=== PATIENT | male | born 1990 | race Caucasian/White ===

== ENCOUNTER 2017-06-24 10:01 | Emergency (ER) | payer MEDICAID ==
[~2017-06-24] VITALS: Ht 191.8 cm; Wt 132.4 kg
[2017-06-24 10:04] VITALS: Ht 191.8 cm; Wt 132.4 kg
[2017-06-24 11:26] VITALS: BP 130/74
== END 2017-06-24 11:26 | disposition home or self-care (01) ==
LOC: ED 10:01
DX: J45.909 Unspecified asthma, uncomplicated (principal); E66.01 Morbid (severe) obesity due to excess calories; I10 Essential (primary) hypertension
CPT/HCPCS: 82962

== ENCOUNTER 2017-07-21 08:10 | Emergency (ER) | payer MEDICAID ==
[~2017-07-21] VITALS: Ht 190.5 cm; Wt 132.0 kg
[2017-07-21 09:12] VITALS: BP 136/81
== END 2017-07-21 09:12 | disposition home or self-care (01) ==
LOC: ED 08:10
DX: R10.9 Unspecified abdominal pain (principal); R19.7 Diarrhea, unspecified; I10 Essential (primary) hypertension; J45.909 Unspecified asthma, uncomplicated

== ENCOUNTER 2017-07-22 17:08 | Emergency (ER) | payer MEDICAID ==
[~2017-07-22] VITALS: Ht 193 cm; Wt 133.8 kg
[2017-07-22 17:11] VITALS: Ht 193 cm; Wt 133.8 kg
[2017-07-22 19:38] LABS: CALCIUM 7.9 mg/dL (8.5-10.1); CHLORIDE SERUM 103 mmol/L (98-107); CREATININE SERUM 0.9 mg/dL (0.7-1.3); GFR1 > 60 mL/min; GLUCOSE SERUM 204 mg/dL (74-106); SODIUM SERUM 138 mmol/L (136-145)
[2017-07-22 19:43] LABS: ALKALINE PHOSPHATASE 130 U/L (46-116); BILIRUBIN TOTAL 0.87 mg/dL (0.20-1.00)
[2017-07-22 20:05] LABS: TOTAL PROTEIN, SERUM 7.5 g/dL (6.4-8.2)
[2017-07-22 20:09] LABS: ALBUMIN 3.3 g/dL (3.4-5.0); ALT/SGPT 140 U/L (16-63); AST/SGOT 65 U/L (15-37)
[2017-07-22 21:59] VITALS: BP 133/81
== END 2017-07-22 21:59 | disposition home or self-care (01) ==
LOC: ED 17:08
PROVIDERS: Emergency Medicine
DX: K52.9 Noninfective gastroenteritis and colitis, unspecified (principal); E83.51 Hypocalcemia; I10 Essential (primary) hypertension; J45.909 Unspecified asthma, uncomplicated
CPT/HCPCS: 82962; J1885; J2405; J7030

== ENCOUNTER 2017-07-29 10:16 | Emergency (ER) | payer MEDICAID ==
[~2017-07-29] VITALS: Ht 193 cm; Wt 130.7 kg
[2017-07-29 10:39] VITALS: Ht 193 cm; Wt 130.7 kg
[2017-07-29 12:07] LABS: BASOPHIL % 1.3 % (0-2); PLATELET COUNT 148 x10^3mcL (130-400); RED CELL DISTRIBUTION WIDTH 13.5 % (11.5-14.5)
[2017-07-29 12:10] LABS: CALCIUM 9.3 mg/dL (8.5-10.1); CARBON DIOXIDE 26.8 mmol/L (21-32); CHLORIDE SERUM 103 mmol/L (98-107); CREATININE SERUM 0.8 mg/dL (0.7-1.3); GFR1 > 60 mL/min; GLUCOSE SERUM 106 mg/dL (74-106); POTASSIUM SERUM 4.2 mmol/L (3.5-5.1); SODIUM SERUM 138 mmol/L (136-145)
[2017-07-29 12:16] LABS: ALBUMIN 3.8 g/dL (3.4-5.0); ALKALINE PHOSPHATASE 115 U/L (46-116); ALT/SGPT 157 U/L (16-63); AST/SGOT 57 U/L (15-37); BILIRUBIN TOTAL 0.6 mg/dL (0.20-1.00)
[2017-07-29 17:14] VITALS: BP 120/71
== END 2017-07-29 14:00 | disposition home or self-care (01) ==
LOC: ED 10:16
PROVIDERS: Emergency Medicine Emergency Medical Services
DX: R94.5 Abnormal results of liver function studies (principal); D58.2 Other hemoglobinopathies; I10 Essential (primary) hypertension; E11.9 Type 2 diabetes mellitus without complications; J45.909 Unspecified asthma, uncomplicated
CPT/HCPCS: 36415; 82962; 86308; Q0092

== ENCOUNTER 2018-07-01 13:32 | Emergency (ER) | payer MEDICAID ==
[~2018-07-01] VITALS: Ht 190.5 cm; Wt 121.6 kg
[2018-07-01 13:42] VITALS: Ht 190.5 cm; Wt 121.6 kg
[2018-07-01 15:06] LABS: BASOPHIL % 0.4 % (0-2); PLATELET COUNT 148 x10^3mcL (130-400); RED CELL DISTRIBUTION WIDTH 13.4 % (11.5-14.5)
[2018-07-01 15:19] LABS: CALCIUM 8.5 mg/dL (8.5-10.1); CARBON DIOXIDE 21.3 mmol/L (21-32); CHLORIDE SERUM 102 mmol/L (98-107); CREATININE SERUM 0.8 mg/dL (0.7-1.3); GFR1 > 60 mL/min; GLUCOSE SERUM 303 mg/dL (74-106); POTASSIUM SERUM 3.7 mmol/L (3.5-5.1); SODIUM SERUM 135 mmol/L (136-145)
[2018-07-01 15:24] LABS: ALBUMIN 3.9 g/dL (3.4-5.0); ALKALINE PHOSPHATASE 145 U/L (46-116); ALT/SGPT 232 U/L (16-63); BILIRUBIN TOTAL 0.4 mg/dL (0.20-1.00); LIPASE 81 IU/L (73-393); TOTAL PROTEIN, SERUM 8.2 g/dL (6.4-8.2)
[2018-07-01 16:50] LABS: AST/SGOT 112 U/L (15-37)
[2018-07-01 17:07] VITALS: BP 130/46
== END 2018-07-01 17:07 | disposition home or self-care (01) ==
LOC: ED 13:32
PROVIDERS: Emergency Medicine
DX: E11.65 Type 2 diabetes mellitus with hyperglycemia (principal); J45.909 Unspecified asthma, uncomplicated; I10 Essential (primary) hypertension; E78.00 Pure hypercholesterolemia, unspecified; Z90.89 Acquired absence of other organs
CPT/HCPCS: 82962; J1815; J1885; J7030; Q0092

== ENCOUNTER 2018-10-27 07:05 | Emergency (ER) | payer MEDICAID ==
[~2018-10-27] VITALS: Ht 190.5 cm; Wt 119.7 kg
[2018-10-27 07:07] VITALS: Ht 190.5 cm; Wt 119.7 kg
[2018-10-27 07:47] LABS: BASOPHIL % 0.4 % (0-2)
[2018-10-27 07:49] LABS: PLATELET COUNT 112 x10^3mcL (130-400)
[2018-10-27 08:14] LABS: CARBON DIOXIDE 25.1 mmol/L (21-32); CHLORIDE SERUM 99 mmol/L (98-107); CREATININE SERUM 0.9 mg/dL (0.7-1.3); GFR1 > 60 mL/min; GLUCOSE SERUM 376 mg/dL (74-106); POTASSIUM SERUM 4.1 mmol/L (3.5-5.1); SODIUM SERUM 133 mmol/L (136-145); TOTAL PROTEIN, SERUM 7.8 g/dL (6.4-8.2)
[2018-10-27 08:15] LABS: ALBUMIN 3.9 g/dL (3.4-5.0); ALKALINE PHOSPHATASE 161 U/L (46-116); ALT/SGPT 212 U/L (16-63); AST/SGOT 64 U/L (15-37); BILIRUBIN TOTAL 0.7 mg/dL (0.20-1.00); CALCIUM 9.5 mg/dL (8.5-10.1); MAGNESIUM 1.7 mg/dL (1.8-2.4)
[2018-10-27 13:19] VITALS: BP 117/68
== END 2018-10-27 13:31 | disposition home or self-care (01) ==
LOC: ED 07:05
PROVIDERS: Emergency Medicine
DX: E11.65 Type 2 diabetes mellitus with hyperglycemia (principal); R07.89 Other chest pain; I10 Essential (primary) hypertension; E78.00 Pure hypercholesterolemia, unspecified; J45.909 Unspecified asthma, uncomplicated
CPT/HCPCS: 82962; J1815; J7030; Q0092

== ENCOUNTER 2019-05-23 06:21 | Emergency (ER) | payer MEDICAID ==
[~2019-05-23] VITALS: Ht 190.5 cm; Wt 126.6 kg
[2019-05-23 09:34] LABS: BASOPHIL % 0.2 % (0-2); PLATELET COUNT 120 x10^3mcL (130-400); RED CELL DISTRIBUTION WIDTH 13.1 % (11.5-14.5)
[2019-05-23 09:54] LABS: ALKALINE PHOSPHATASE 118 U/L (46-116); ALT/SGPT 248 U/L (16-63); AST/SGOT 110 U/L (15-37); BILIRUBIN TOTAL 0.73 mg/dL (0.20-1.00); CARBON DIOXIDE 27.8 mmol/L (21-32); CHLORIDE SERUM 98 mmol/L (98-107); CREATININE SERUM 0.9 mg/dL (0.7-1.3); GFR1 > 60 mL/min; GLUCOSE SERUM 246 mg/dL (74-106); LIPASE 72 IU/L (73-393); SODIUM SERUM 134 mmol/L (136-145)
[2019-05-23 09:59] LABS: TOTAL PROTEIN, SERUM 8.5 g/dL (6.4-8.2)
[2019-05-23 11:21] LABS: AMPHETAMINE QUAL UR NONE DETECTED (See below)
[2019-05-23 12:33] VITALS: BP 140/81
== END 2019-05-23 12:32 | disposition home or self-care (01) ==
LOC: ED 06:21
PROVIDERS: Emergency Medicine
DX: R10.13 Epigastric pain (principal); R11.2 Nausea with vomiting, unspecified; I10 Essential (primary) hypertension; E11.9 Type 2 diabetes mellitus without complications; E78.00 Pure hypercholesterolemia, unspecified; Z90.89 Acquired absence of other organs
CPT/HCPCS: 82962; C9113; J2405; J7030; Q0092